=== PATIENT | female | born 1975 | race Caucasian/White ===

== ENCOUNTER 2020-03-23 15:31 | Emergency (ER) | payer MEDICARE ==
[~2020-03-23] VITALS: Ht 160 cm; Wt 72.6 kg
[2020-03-23] MEDS ORDERED: IRON IV (15:46)
[2020-03-23] MEDS ORDERED: IV NORMAL SALINE 1000 ML BAG IV ONE (16:00)
[2020-03-23] MEDS ORDERED: ONDANSETRON 4 MG/2 ML VIAL IV ONE (16:00)
[2020-03-23] MEDS ORDERED: MORPHINE SULFATE 2 MG/1 ML DISP.SYRIN IV ONE (16:00)
--- NOTE | 2020-03-23 16:20 | NUR ---
According to ERMD, DR. CARD, Dr. Enriquez from [facility] ER and saw the patient just NURSING INSTRUCTOR. Patient had a full-work up with the no abnormal results and was discharged. Dr. Card came into the room and stated that he will not be giving the patient anything and that she needs to leave. Apparently this patient has been going to various emergency departments with the same presentations, and presents with drug-seeking behavior. Patient was instructed to leave. Patient ambulated with stable gait. No IV's were given.
[2020-03-23 16:26] VITALS: BP 118/83
== END 2020-03-23 16:26 | disposition home or self-care (01) ==
LOC: ER 15:33
DX: Z76.5 Malingerer [conscious simulation] (principal); Z98.84 Bariatric surgery status; D50.9 Iron deficiency anemia, unspecified
CPT/HCPCS: 93005; A4663; J7030

== ENCOUNTER 2021-07-09 16:18 | Emergency (ER) | payer MEDICARE, OTHER ==
[~2021-07-09] VITALS: Ht 157.5 cm; Wt 68.9 kg
[~2021-07-09 16:18] MED LIST: IRON IV
--- NOTE | 2021-07-09 16:38 | NUR ---
PT WAS ASKED TO GIVE A URINE SPECIMEN, BUT SHE REFUSED AT THIS TIME. DR JOSE NOTIFIED.
--- NOTE | 2021-07-09 17:29 | NUR ---
PT SEEN BY DR JOSE, WAS INFORMED THAT SHE WAS NOT GETTING ANY NARCOTICS; PT DECIDED TO LEAVE INSTEAD.
== END 2021-07-09 17:33 | disposition left against medical advice (07) ==
LOC: ER 16:20
DX: Z53.21 Procedure and treatment not carried out due to patient leaving prior to being seen by health care provider (principal)